=== PATIENT | female | born 1935 | race Caucasian/White ===

== ENCOUNTER 2018-12-26 15:14 | Outpatient (CLI) | payer MEDICARE, OTHER ==
[~2018-12-26 15:14] MED LIST: ACET-2319 PO; ASPI-611 PO; ATOR40TA7 PO; CALC1TAB2 PO; CODE240S2 PO; CRAN500C4 PO; DENO60DI; ESTR0.5T PO; FLAX100032; MAGN250T29 PO; NEBI2.5T3 PO; OMEG1CAP2; SENN8.6C6
== END 2018-12-26 23:59 | disposition home or self-care (01) ==
LOC: RAD 15:14
PROVIDERS: ATTEND Dietitian, Registered
DX: R13.14 Dysphagia, pharyngoesophageal phase (principal); K21.9 Gastro-esophageal reflux disease without esophagitis; I10 Essential (primary) hypertension; Z79.899 Other long term (current) drug therapy
CPT/HCPCS: 74230

== ENCOUNTER 2023-06-12 05:31 | Day surgery (SDC) | payer MEDICARE, OTHER ==
[2023-06-08 10:02] LABS: BASOPHILS % (AUTO) 0.4 % (0-1); EOSINOPHILS # (AUTO) 0.1 X10'3 (0-0.9); EOSINOPHILS % (AUTO) 1.3 % (0-6); LYMPHOCYTES # (AUTO) 1.7 X10'3 (1.1-4.8); LYMPHOCYTES % (AUTO) 30.1 % (21-51); MEAN CORPUSCULAR HEMOGLOBIN 31.4 PG (27.0-31.0); MEAN CORPUSCULAR HGB CONC 33.2 g/dL (33.0-36.5); MEAN CORPUSCULAR VOLUME 94.5 FL (78-98); MEAN PLATELET VOLUME 7.1 FL (7.4-10.4); MONOCYTES # (AUTO) 0.5 X10'3 (0-0.9); MONOCYTES % (AUTO) 8.7 % (2-12); NEUTROPHILS # (AUTO) 3.3 X10'3 (1.8-7.7); NEUTROPHILS % (AUTO) 59.5 % (42-75); PRE OP HEMATOCRIT 36.6 % (35.0-45.0); PRE OP HEMOGLOBIN 12.1 g/dL (12.0-16.0); PRE OP PLATELET COUNT 217 X10'3 (140-440); PRE OP WHITE BLOOD COUNT 5.6 10'3 (4.8-10.8); RED BLOOD COUNT 3.87 X10'6 (4.20-5.60); RED CELL DISTRIBUTION WIDTH 14.6 % (11.5-14.5)
[2023-06-08 10:23] LABS: ALBUMIN 3.8 G/DL (3.4-5.0); ALBUMIN/GLOBULIN RATIO 0.9 (1.1-1.5); ALKALINE PHOSPHATASE 60 IU/L (46-116); BLOOD UREA NITROGEN 39 MG/DL (7-18); BUN/CREATININE RATIO 21.8 (10.0-20.0); CALCIUM 9.3 MG/DL (8.5-10.1); CHLORIDE 110 MMOL/L (99-107); CREATININE 1.79 MG/DL (0.40-0.90); PRE OP ALT 30 U/L (30-65); PRE OP ANION GAP 9 (8-16); PRE OP AST 19 U/L (10-37); PRE OP BILIRUB, TOTAL 0.3 MG/DL (0.0-1.0); PRE OP GLUCOSE 98 MG/DL (70-104); PRE OP SODIUM 144 MMOL/L (135-145); TOTAL CARBON DIOXIDE 24.7 MMOL/L (24-32); TOTAL PROTEIN 8.2 G/DL (6.4-8.2); eGFR 27 ML/MIN
[~2023-06-12] VITALS: Ht 160 cm; Wt 60.1 kg
[2023-06-12] VITALS (16 sets, daily range): BP systolic 115–162; BP diastolic 49–70; PULSE 57–87; RESP 13–17; TEMP 97.5; O2SAT 95–100
[~2023-06-12 05:31] MED LIST changes: +ACET-2389 PO; -ASPI-611 PO; +ATOR-411 PO; -ATOR40TA7 PO; -CALC1TAB2 PO; +CHLORHEXIDINE PO; -CODE240S2 PO; +CRAN400C PO; -CRAN500C4 PO; -ESTR0.5T PO; -FLAX100032; +LOSA25TA41 PO; -NEBI2.5T3 PO; -OMEG1CAP2; +OMEP20CA16 PO; +PREVCR VG; +XYLI500M PO; +[UNRECOGNIZED DRUG - CODE]; +[UNRECOGNIZED DRUG - OTHER]; +ringers solution, lacted 1,000 ML IV SCH
[2023-06-12] MEDS: cefazolin 2gm/D5W 100mL 100 ML IV ONE (05:44)
[2023-06-12] MEDS: famotidine 20mg tablet PO ONE (06:02)
[2023-06-12] MEDS ORDERED: BUPIVAcaine/PF 2.5mg/ml (0.25%) 10ml vial ONE (06:39)
[2023-06-12] MEDS ORDERED: LIDOcaine 2% (20mg/ml) 5ml vial ONE ×4 (06:39→06:42)
[2023-06-12] MEDS ORDERED: fentaNYL/PF 50MCG/1 ML 2ML syringe ONE (07:37)
[2023-06-12] MEDS ORDERED: morphine 2 MG/ML inj. syringe IV PRN (07:45)
[2023-06-12] MEDS ORDERED: morphine 4 MG/ML inj SYRINge IV PRN (07:45)
[2023-06-12] MEDS ORDERED: meperidine/PF 25mg/ml syringe IV PRN ×3 (07:45)
[2023-06-12] MEDS: ringers solution, lacted 1,000 ML IV SCH (07:55)
[2023-06-12] MEDS: BUPIVAcaine/PF 2.5mg/ml (0.25%) 10ml vial IJ ONE (08:03)
[2023-06-12] MEDS: LIDOcaine 2% (20mg/ml) 5ml vial SQ ONE (08:04)
[2023-06-12] MEDS ORDERED: propofol inj 20 ML IV ONE (08:04)
[2023-06-12] MEDS: ondansetron/PF 4mg/2ml inj IV PRN (08:13)
[2023-06-12] MEDS: proCHLORperazine 10 MG/2 ml inj IV PRN (09:43)
== END 2023-06-12 10:50 | disposition home or self-care (01) ==
LOC: PAS 05:31
PROVIDERS: ATTEND Orthopaedic Surgery Hand Surgery
DX: M65.332 Trigger finger, left middle finger (principal); M17.11 Unilateral primary osteoarthritis, right knee; E78.00 Pure hypercholesterolemia, unspecified; M81.0 Age-related osteoporosis without current pathological fracture; J44.9 Chronic obstructive pulmonary disease, unspecified; I12.9 Hypertensive chronic kidney disease with stage 1 through stage 4 chronic kidney disease, or unspecified chronic kidney disease; N18.30 Chronic kidney disease, stage 3 unspecified; G62.9 Polyneuropathy, unspecified; G43.809 Other migraine, not intractable, without status migrainosus; Z79.899 Other long term (current) drug therapy; Z88.5 Allergy status to narcotic agent; Z88.8 Allergy status to other drugs, medicaments and biological substances; Z91.040 Latex allergy status; Z87.440 Personal history of urinary (tract) infections; Z90.710 Acquired absence of both cervix and uterus; Z98.890 Other specified postprocedural states; Z72.89 Other problems related to lifestyle; Z98.41 Cataract extraction status, right eye; Z98.42 Cataract extraction status, left eye; Z85.828 Personal history of other malignant neoplasm of skin; Z83.3 Family history of diabetes mellitus
CPT/HCPCS: 26055; 36415; 80053; 82948; 85025; 93005; J0690; J0780; J2405; J2704; J3010; J3490; J7030; J7120; Z7506; Z7512; A4215; A6449

== ENCOUNTER 2024-04-12 13:42 | Emergency (ER) | payer MEDICARE, OTHER ==
[~2024-04-12] VITALS: Ht 162.6 cm; Wt 56.8 kg
[~2024-04-12 13:42] MED LIST changes: -ringers solution, lacted 1,000 ML IV SCH
[2024-04-12 14:29] VITALS: BP 146/82; PULSE 71; RESP 16; TEMP 98.2; O2SAT 98
== END 2024-04-12 14:25 | disposition home or self-care (01) ==
LOC: ER 13:43
DX: S60.212A Contusion of left wrist, initial encounter (principal); I10 Essential (primary) hypertension; E78.00 Pure hypercholesterolemia, unspecified; Z88.5 Allergy status to narcotic agent; Z91.013 Allergy to seafood; Z79.1 Long term (current) use of non-steroidal anti-inflammatories (NSAID); Z79.899 Other long term (current) drug therapy; W25.XXXA Contact with sharp glass, initial encounter; Y93.89 Activity, other specified; Y92.89 Other specified places as the place of occurrence of the external cause; Y99.8 Other external cause status
CPT/HCPCS: 73110; 99283